=== PATIENT | female | born 1965 | race Caucasian/White ===

== ENCOUNTER 2019-01-14 08:24 | Emergency (ER) | payer MEDICAID ==
--- NOTE | 2019-01-14 08:59 | EDM.PDOC ---
ED HPI GENERAL MEDICAL PROBLEM - General Chief Complaint: Upper Extremity Injury/Pain Stated Complaint: RIGHT SHOULDER /RIGHT HIP PAIN Time Seen by Provider: 01/14/19 08:53 Source of Information: Reports: Patient History Limitations: Reports: No Limitations - History of Present Illness INITIAL COMMENTS - FREE TEXT/NARRATIVE: She is a 53-year-old female with significant past medical history of osteoarthritis of LS spine, anxiety and hypothyroidism, presented today with concerns of right hip pain and right shoulder pain after falling/tripping over a dog 2-weeks ago. Patient states she's been using conservative therapy including ice and hot packs, Tylenol, and using her prescription muscle relaxant to help with spasm in her right hip and right buttock. Patient otherwise denies any fevers, chills, body aches, changes in bowel or bladder habits; denies incontinence. States having paresthesias of her right lower extremities however this is baseline prior to injury. Has not seen a physician that she cannot get an appointment, states the pain had interfered with sleep; hence her coming to the ER this AM. Denies any head trauma, LOC, dizziness or headache. Denies any other neurological symptoms/changes since fall. Right Hip Pain Score (Numeric/FACES): 6 - Related Data Allergies Allergy/AdvReac Type Severity Reaction Status Date / Time NSAIDS (Non-Steroidal Allergy Hives Verified 01/14/19 09:00 Anti-Inflamma prednisone Allergy Rash Verified 01/14/19 09:00 Home Meds: Home Meds LORazepam 0.5 mg PO BID PRN 01/14/19 [History] Methocarbamol [Robaxin] 500 mg PO TID PRN 01/14/19 [History] Thyroid [[place] Thyroid] 30 mg PO DAILY 01/14/19 [History] Review of Systems - Review of Systems Review Of Systems: See Below Constitutional: Denies: Chills, Fever, Weakness Eyes: Reports: No Symptoms Ears: Reports: No Symptoms Nose: Reports: No Symptoms Mouth/Throat: Reports: No Symptoms Respiratory: Reports: No Symptoms Cardiovascular: Reports: No Symptoms GI/Abdominal: Reports: No Symptoms. Denies: Nausea, Vomiting Genitourinary: Denies: Incontinence Musculoskeletal: Reports: Shoulder Pain, Joint Pain, Other (right hip pain ) Neurological: Reports: Paresthesia Psychiatric: Reports: No Symptoms ED EXAM, GENERAL - Physical Exam Exam: See Below Exam Limited By: No Limitations General Appearance: Alert, No Apparent Distress Head: Atraumatic, Normocephalic Respiratory/Chest: No Respiratory Distress, Lungs Clear Cardiovascular: Regular Rate, Rhythm, No Edema GI/Abdominal: Soft, Non-Tender Back Exam: Other (Mild cervical paraspinal tenderness. No acute step-offs or deformity palpated/appreciated. ) Extremities: Other (right hp ;point tenderness over trocahnteric area; no ecchymosis noted. FROM. Right Shoulder: FROM, mild ACjoint tenderness; no soft tissue swelling, +paraspinal cervical tenderness; ...mild apprehension sign on right) Neurological: Alert, Oriented, CN II-XII Intact, Normal Cognition Psychiatric: Normal Affect, Normal Mood Skin Exam: Warm, Dry, Intact Course - Vital Signs Last Recorded V/S: Last Vital Signs Temp 96.3 F 01/14/19 09:04 Pulse 96 01/14/19 09:04 Resp 20 01/14/19 09:04 BP 120/67 01/14/19 09:04 Pulse Ox 97 01/14/19 09:04 Departure - Departure Time of Disposition: 10:34 Disposition: Home, Self-Care 01 Clinical Impression: Shoulder contusion, Contusion, hip - Discharge Information Referrals: Jocelyn Mahajan STORY EDITOR [Primary Care Provider] - Forms: ED Department Discharge - Assessment/Plan Assessment:: Assessment 1. Right shoulder contusion status post fall 2. Right hip contusion status post fall Plan. 1. No radiological evidence of fracture and/or dislocation. Advised to follow with PCP and physical therapy. Continue to use conservative treatments 2. Tramadol 50 mg q8hrs PRN pain x 5-days : Every 8 hours when necessary for pain. PDMP reviewed Advised to continue conservative treatment including ice/heat. Stretch and strengthening exercises encouraged and educated. patient understood plan. all questions answered will return PRN. No head trauma or LOC; advised to return if symptoms of headache, fever, changes unconsciousness, bladder /bowel habits change and/or Chest pain or SOB develop. patient understood. Plan: The following information is given to patients seen in the emergency department who are being discharged to home. This information is to outline your options for follow-up care. We provide all patients seen in our emergency department with a follow-up referral. The need for follow-up, as well as the timing and circumstances, are variable depending upon the specifics of your emergency department visit. If you don't have a primary care physician on staff, we will provide you with a referral. We always advise you to contact your personal physician following an emergency department visit to inform them of the circumstance of the visit and for follow-up with them and/or the need for any referrals to a consulting specialist. The emergency department will also refer you to a specialist when appropriate. This referral assures that you have the opportunity for follow-up care with a specialist. All of these measure are taken in an effort to provide you with optimal care, which includes your follow-up. Under all circumstances we always encourage you to contact your private physician who remains a resource for coordinating your care. When calling for follow-up care, please make the office aware that this follow-up is from your recent emergency room visit. If for any reason you are refused follow-up, please contact the [facility] Emergency Department at and asked to speak to the emergency department charge nurse.
--- NOTE | 2019-01-14 10:19 | CR ---
Indication: Pain Technique: Bilateral hips 4 views Comparison: None Findings: Bones: Alignment is normal. No fractures or bone lesions. Joint spaces: Unremarkable. No degenerative changes. Soft tissues: Unremarkable. Impression: Unremarkable bilateral hips. No specific finding to explain pain. Dictated by Shawn Vazquez MD @ Jan 14 2019 10:14AM Signed by Dr. Shawn Vazquez @ Jan 14 2019 10:17AM
--- NOTE | 2019-01-14 10:21 | CR ---
Indication: Shoulder pain Technique: Right shoulder 3 views Comparison: None Findings: Bones: Alignment is normal. No fractures or bone lesions. Joint spaces: Minimal arthritic changes in the AC joint. Unremarkable glenohumeral joint. Narrowing of the subacromial space is suspected. Soft tissues: Unremarkable. Impression: Suspected narrowing of the subacromial space may indicate rotator cuff disease. Minimal AC joint arthritis. No other finding to explain pain. Dictated by Shawn Vazquez MD @ Jan 14 2019 10:17AM Signed by Dr. Shawn Vazquez @ Jan 14 2019 10:20AM
== END 2019-01-14 10:38 | disposition home or self-care (01) ==
LOC: MW.ED 08:24
DX: S40.011A Contusion of right shoulder, initial encounter (principal); S70.01XA Contusion of right hip, initial encounter; Z88.6 Allergy status to analgesic agent; W01.0XXA Fall on same level from slipping, tripping and stumbling without subsequent striking against object, initial encounter
CPT/HCPCS: 73030-26-RT; 73030-RT; 73521; 73521-26; 99283-25

== ENCOUNTER 2019-01-31 10:09 | Observation (INO) | payer MEDICAID ==
[2019-01-31] MEDS ORDERED: Alum Hydrox/Mag Hydrox/Simeth 15 ML, Metoclopramide 5 MG, Lidocaine 2% 5 ML PO ONE ×3 (10:12)
[2019-01-31] MEDS ORDERED: Sodium Chloride 0.9% 1,000 ML IV ONE (10:12)
[2019-01-31] MEDS ORDERED: Aspirin 81 MG Tab.Chew PO ONE (10:17)
--- NOTE | 2019-01-31 10:17 | EDM.PDOC ---
ED HPI GENERAL MEDICAL PROBLEM - General Chief Complaint: Chest Pain Stated Complaint: CHEST PAIN Time Seen by Provider: 01/31/19 10:10 Source of Information: Reports: Patient History Limitations: Reports: No Limitations - History of Present Illness INITIAL COMMENTS - FREE TEXT/NARRATIVE: HISTORY AND PHYSICAL: History of present illness: Patient is a 53-year-old female who presents to the emergency room today with complaints of midsternal chest pain, dizziness, diaphoresis and nausea. Last night she states she developed midsternal chest pain that wrapped around her left wrist and/or shoulder which she thought initially was indigestion. She states it took her a while to fall asleep but eventually was able to rest throughout the night. She did wake up in the morning with the same chest pain and stated that it increased while she was having to climb up the stairs. She states the pain with the physical activity made her feel like she was going to pass out. Currently rating her pain at a 7/10. Patient reports she had an IA at the age of 27 although did not require any intervention. She does smoke daily and reports an increase in stressors. Past medical history of anxiety, hypothyroidism and chronic pain. Review of systems: As per history of present illness and below otherwise all systems reviewed and negative. Past medical history: As per history of present illness and as reviewed below otherwise noncontributory. Surgical history: As per history of present illness and as reviewed below otherwise noncontributory. Social history: See social history for further information Family history: As per history of present illness and as reviewed below otherwise noncontributory. Physical exam: General: Well-developed and well-nourished 53-year-old female. Alert and oriented. Nontoxic appearing and in no acute distress. HEENT: Atraumatic, normocephalic, pupils equal and reactive bilaterally, negative for conjunctival pallor or scleral icterus, mucous membranes moist, trachea midline. No drooling or trismus noted. No meningeal signs. No hot potato voice noted. Lungs: Clear to auscultation, breath sounds equal bilaterally, chest pain is reproducable with palpation. Heart: S1S2, regular rate and rhythm without overt murmur Abdomen: Soft, nondistended, nontender. Negative for masses or hepatosplenomegaly. Negative for costovertebral tenderness. Pelvis: Stable nontender. Skin: Intact, warm, dry. No lesions or rashes noted. Extremities: Atraumatic, moves all extremities per self without difficulty or deficits, negative for cords or calf pain. Neurovascular unremarkable. Neuro: Awake, alert, oriented. Cranial nerves II through XII unremarkable. Cerebellum unremarkable. Motor and sensory unremarkable throughout. Exam nonfocal. Notes: Exam unremarkable. Chest x-ray shows no acute findings. Her pain is reproducible with palpation of the chest wall. She states she does not want to take any NSAIDs although was agreeable to taking the aspirin. We'll give her some morphine for her continued pain. We did discuss admission versus discharge to home. Due to her history of a reported heart attack at the age of 27 and current smoking status will admit for observation with telemetry. Diagnostics: CBC, CMP, UA, Troponin, EKG, CXR, TSH Therapeutics: IV fluids, GI cocktail, Aspirin Impression: Chest Pain r/o IA Plan: Observation admission to Med/Surg with telemetry Definitive disposition and diagnosis as appropriate pending reevaluation and review of above. Left Chest Pain Score (Numeric/FACES): 7 - Related Data Allergies Allergy/AdvReac Type Severity Reaction Status Date / Time NSAIDS (Non-Steroidal Allergy Hives Verified 01/31/19 10:12 Anti-Inflamma prednisone Allergy Rash Verified 01/31/19 10:12 Home Meds: Home Meds LORazepam 0.5 mg PO BID PRN 01/14/19 [History] Methocarbamol [Robaxin] 500 mg PO TID PRN 01/14/19 [History] Thyroid [[place] Thyroid] 30 mg PO DAILY 01/14/19 [History] Past Medical History HEENT History: Reports: None Cardiovascular History: Reports: None Respiratory History: Reports: None Gastrointestinal History: Reports: None Genitourinary History: Reports: None VIDEO TAPE DUPLICATOR History: Reports: None Musculoskeletal History: Reports: Other (See Below) Other Musculoskeletal History: Degenerative Disk Disease Psychiatric History: Reports: Anxiety Endocrine/Metabolic History: Reports: Hyperthyroidism, Hypothyroidism Hematologic History: Reports: None Immunologic History: Reports: None Oncologic (Cancer) History: Reports: None Dermatologic History: Reports: None - Infectious Disease History Infectious Disease History: Reports: None - Past Surgical History Head Surgeries/Procedures: Reports: None Social & Family History - Family History Family Medical History: Noncontributory - Caffeine Use Caffeine Use: Reports: Coffee ED ROS GENERAL - Review of Systems Review Of Systems: ROS reveals no pertinent complaints other than HPI. ED EXAM, GENERAL - Physical Exam Exam: See Below (See dictation) Course - Vital Signs Last Recorded V/S: Last Vital Signs Temp 97.3 F 01/31/19 11:38 Pulse 83 01/31/19 11:38 Resp 18 01/31/19 11:38 BP 124/69 01/31/19 11:38 Pulse Ox 97 01/31/19 11:38 - Orders/Labs/Meds Orders: Active Orders 24 hr Category Date Time Status Admission Status [Patient Status] [ADT] Stat ADT 01/31/19 11:35 Active EKG Documentation Completion [RC] STAT Care 01/31/19 10:12 Active Sodium Chloride 0.9% [Normal Saline] 1,000 ml Med 01/31/19 10:12 Active IV STAT Medication Orders Sodium Chloride (Normal Saline) 1,000 mls @ 125 mls/hr IV STAT ONE Stop: 01/31/19 18:11 Last Admin: 01/31/19 10:23 Dose: 125 mls/hr Labs: Laboratory Tests 01/31/19 01/31/19 01/31/19 Range/Units 10:23 10:23 10:28 WBC 7.45 (4.0-11.0) K/uL RBC 4.65 (4.30-5.90) M/uL Hgb 14.1 (12.0-16.0) g/dL Hct 41.4 (36.0-46.0) % MCV 89.0 (80.0-98.0) fL MCH 30.3 (27.0-32.0) pg MCHC 34.1 (31.0-37.0) g/dL RDW Std Deviation 42.2 (28.0-62.0) fl RDW Coeff of [place] 13 (11.0-15.0) % Plt Count 307 (150-400) K/uL MPV 10.10 (7.40-12.00) fL Add Manual Diff YES Neutrophils % (Manual) 41 L (48.0-80.0) % Lymphocytes % (Manual) 54 H (16.0-40.0) % Monocytes % (Manual) 4 (0.0-15.0) % Basophils % (Manual) 1 (0.0-1.5) % Nucleated RBC % 0.0 /100WBC Absolute Seg Neuts 3.1 (1.4-5.7) Lymphocytes # (Manual) 4.0 H (0.6-2.4) Monocytes # (Manual) 0.3 (0.0-0.8) Basophils # (Manual) 0.1 (0.0-0.1) Nucleated RBCs # 0 K/uL Sodium 140 (136-145) mmol/L Potassium 3.9 (3.5-5.1) mmol/L Chloride 105 (98-107) mmol/L Carbon Dioxide 26.1 (21.0-32.0) mmol/L BUN 13 (7.0-18.0) mg/dL Creatinine 0.8 (0.6-1.0) mg/dL Est Cr Clr Drug Dosing 65.73 mL/min Estimated GFR (MDRD) > 60.0 ml/min Glucose 105 (74-106) mg/dL Calcium 8.8 (8.5-10.1) mg/dL Total Bilirubin 0.4 (0.2-1.0) mg/dL AST 17 (15-37) IU/L ALT 23 (14-63) IU/L Alkaline Phosphatase 65 (46-116) U/L Troponin I < 0.050 (0.000-0.056) ng/mL Total Protein 7.2 (6.4-8.2) g/dL Albumin 3.7 (3.4-5.0) g/dL Globulin 3.5 (2.6-4.0) g/dL Albumin/Globulin Ratio 1.1 (0.9-1.6) TSH 3rd Generation 0.61 (0.36-3.74) uIU/mL Urine Color YELLOW Urine Appearance CLEAR Urine pH 5.0 (5.0-8.0) Ur Specific [place] 1.025 (1.001-1.035) Urine Protein NEGATIVE (NEGATIVE) mg/dL Urine Glucose (UA) NEGATIVE (NEGATIVE) mg/dL Urine Ketones NEGATIVE (NEGATIVE) mg/dL Urine Occult Blood TRACE-INTACT H (NEGATIVE) Urine Nitrite NEGATIVE (NEGATIVE) Urine Bilirubin NEGATIVE (NEGATIVE) Urine Urobilinogen 0.2 (<2.0) EU/dL Ur Leukocyte Esterase NEGATIVE (NEGATIVE) Urine RBC 0-2 (0-2/HPF) Urine WBC 0-1 (0-5/HPF) Ur Epithelial Cells OCCASIONAL (NONE-FEW) Urine Bacteria RARE (NEGATIVE) Meds: Medications Generic Name Dose Route Start Last Admin Trade Name Quan PRN Reason Stop Dose Admin Sodium Chloride 1,000 mls @ 125 mls/hr 01/31/19 10:12 01/31/19 10:23 Normal Saline IV 01/31/19 18:11 125 mls/hr STAT ONE Administration Discontinued Medications Generic Name Dose Route Start Last Admin Trade Name Quan PRN Reason Stop Dose Admin Aspirin 324 mg 01/31/19 10:17 01/31/19 10:23 Aspirin PO 01/31/19 10:18 324 mg ONETIME ONE Administration Al Hydroxide/Mg Hydroxide 15 0 ml 01/31/19 10:12 01/31/19 10:23 ml/ Metoclopramide HCl 5 mg/ PO 01/31/19 10:13 25 each Lidocaine HCl 5 ml ONETIME ONE Administration Morphine Sulfate 2 mg 01/31/19 11:19 01/31/19 11:37 Morphine IVPUSH 01/31/19 11:20 2 mg ONETIME ONE Administration Ondansetron HCl 4 mg 01/31/19 11:19 01/31/19 11:37 Zofran IVPUSH 01/31/19 11:20 4 mg ONETIME ONE Administration Departure - Departure Time of Disposition: 12:43 Disposition: Refer to Observation Clinical Impression: Chest pain, rule out acute myocardial infarction Referrals: Jocelyn Mahajan DIRECTOR OF [employer]UMNI RELATIONS [Primary Care Provider] - Forms: ED Department Discharge - My Orders Last 24 Hours: My Active Orders 01/31/19 10:12 EKG Documentation Completion [RC] STAT Sodium Chloride 0.9% [Normal Saline] 1,000 ml IV STAT 01/31/19 11:35 Admission Status [Patient Status] [ADT] Stat - Assessment/Plan Last 24 Hours: My Active Orders 01/31/19 10:12 EKG Documentation Completion [RC] STAT Sodium Chloride 0.9% [Normal Saline] 1,000 ml IV STAT 01/31/19 11:35 Admission Status [Patient Status] [ADT] Stat
[2019-01-31 11:13] LABS: BLOOD UREA NITROGEN,BUN 13 mg/dL (7.0-18.0); CARBON DIOXIDE,CO2 26.1 mmol/L (21.0-32.0); CHLORIDE,CL 105 mmol/L (98-107); GLUCOSE RANDOM 105 mg/dL (74-106); POTASSIUM,K 3.9 mmol/L (3.5-5.1); SODIUM,NA 140 mmol/L (136-145)
[2019-01-31] MEDS ORDERED: Ondansetron 4 MG/2 ML SDV IVPUSH ONE (11:19)
[2019-01-31] MEDS ORDERED: Morphine 2 MG/ML Syringe IVPUSH ONE (11:19)
--- NOTE | 2019-01-31 11:30 | CR ---
EXAM DATE: 01/31/19 PATIENT'S AGE: 53 Chest: Portable view of the chest was obtained. Comparison: No prior chest x-ray. Heart size and mediastinum are normal. Increased density is seen overlying the right first rib most likely due to bone island. No acute parenchymal change is felt to be present within the lungs. Bony structures are otherwise grossly intact. Impression: 1. Presumed bone island within the right first rib. 2. Nothing acute is otherwise seen on portable chest x-ray. Diagnostic code #2 Report Signed by Proxy. BRUNA
[2019-01-31] MEDS ORDERED: Non-Formulary Medication 1 Each (Lorazepam 0.5 MG) PO PRN (13:02)
--- NOTE | 2019-01-31 13:24 | PCM.HP.2 ---
Addendum entered and electronically signed by Nell Pate NP 01/31/19 14:29 : Correction: EKG SR with RBBB. No possible a fib. No ST elevations or T wave inversions. Original Note: H&P History of Present Illness - General Date of Service: 01/31/19 Admit Problem/Dx: Admission Diagnosis/Problem Admission Diagnosis/Problem Chest pain, rule out acute myocardial infarction Source of Information: Patient - History of Present Illness Initial Comments - Free Text/Narative: This 53 year old female with pmh of [place] at age 27, hyperthyroidism with radiation and now subsequently hypothyroid, anxiety and chronic back pain presented to the ED with complaints of midsternal chest pain with associated lightheadedness, SOB, and dizziness. She reports the pain started last evening, she felt maybe it was related to her anxiety and took her Ativan, but the pain persisted through the night. Today she reports she was still having the pain and then also had the pain worsen and radiate to her L arm with activity which scared her. She reports the pain is pressure like and heaviness. She reports the associated shortness of breath, lightheadedness and dizziness. She reports she checked her pulse and noticed it was skipping beats and fast at times. She reports she was on some heart medication when she was first diagnosed with hyperthyroidism, but has not been on this for a long time. She reports some heartburn and mild nausea as well. No abdominal pain or urinary concerns. She reports she is dealing with a lot of stressors, as she is moving from [place] to [place] and needing to find apartments. She reports significiant family history of CAD with mother and father along with grandparents. She reports she smokes 10 ciagrettes daily, which is less than 10 years ago, but continues to smoke and is wanting to quit. She denies recreational drug use and alcohol use. In the ED CBC WNL. UA negative BMP WNL. K+ 3.9. CXR negative. TSH 0.61. She was given ASA, Morphine GI cocktail and NS fluids in the ED. She report she is feeling anxious right now with admission, but denies pain currently. Unsure what really made it better. EKG revealed possible afib with rates in the 90s, repeat revealed SR 70s with no ST changes or T wave inversions. PCP, [place]. Left Chest Pain Score (Numeric/FACES): 7 - Related Data Allergies/Adverse Reactions: Allergies Allergy/AdvReac Type Severity Reaction Status Date / Time NSAIDS (Non-Steroidal Allergy Hives Verified 01/31/19 13:45 Anti-Inflamma prednisone Allergy Rash Verified 01/31/19 13:45 Home Medications: Home Meds LORazepam 0.5 mg PO BID PRN 01/14/19 [History] Methocarbamol [Robaxin] 500 mg PO TID PRN 01/14/19 [History] Cholecalciferol (Vitamin D3) [Vitamin D3] 5,000 unit PO DAILY 01/31/19 [History] Thyroid [[place] Thyroid] 15 mg PO DAILY 01/31/19 [History] Past Medical History HEENT History: Reports: None Cardiovascular History: Reports: Arrhythmia, High Cholesterol, [place] (age 27) Respiratory History: Reports: None Gastrointestinal History: Reports: None. Denies: GERD Genitourinary History: Reports: Renal Calculus. Denies: Chronic Renal Insuffiency ROLLER PICKER History: Reports: None Musculoskeletal History: Reports: Back Pain, Chronic, Other (See Below) Other Musculoskeletal History: Degenerative Disk Disease Psychiatric History: Reports: Anxiety, PTSD Endocrine/Metabolic History: Reports: Hyperthyroidism (radiation beads at one time to thyroid), Hypothyroidism. Denies: Diabetes, Type II Hematologic History: Reports: None Immunologic History: Reports: None Oncologic (Cancer) History: Reports: None Dermatologic History: Reports: None - Infectious Disease History Infectious Disease History: Reports: None - Past Surgical History Head Surgeries/Procedures: Reports: None Cardiovascular Surgical History: Reports: None Female Surgical History: Reports: Hysterectomy Neurological Surgical History: Reports: Lumbar Spine Social & Family History - Family History Family Medical History: Noncontributory - Tobacco Use Smoking Status *Q: Current Every Day Smoker Years of Tobacco use: 30 Packs/Tins Daily: 1 - Caffeine Use Caffeine Use: Reports: Coffee - Alcohol Use Alcohol Use History: No - Recreational Drug Use Recreational Drug Use: No - Living Situation & Occupation Living situation: Reports: Alone Occupation: Disabled H&P Review of Systems - Review of Systems: Review Of Systems: See Below General: Reports: No Symptoms. Denies: Fever, Chills, Malaise HEENT: Reports: No Symptoms. Denies: Headaches, Sinus Congestion Pulmonary: Reports: Shortness of Breath. Denies: Cough, Sputum Cardiovascular: Reports: Chest Pain, Lightheadedness Gastrointestinal: Reports: Nausea, Other (heartburn). Denies: Abdominal Pain, Black Stool, Bloody Stool, Vomiting Genitourinary: Reports: No Symptoms. Denies: Dysuria, Frequency Musculoskeletal: Reports: No Symptoms Skin: Reports: No Symptoms Psychiatric: Reports: Anxiety Neurological: Reports: No Symptoms Hematologic/Lymphatic: Reports: No Symptoms Immunologic: Reports: No Symptoms Exam - Exam Exam: See Below - Vital Signs Vital Signs: Last Vital Signs Temp 97.3 F 01/31/19 11:38 Pulse 83 01/31/19 11:38 Resp 18 01/31/19 11:38 BP 124/69 01/31/19 11:38 Pulse Ox 97 01/31/19 11:38 Weight: 74.843 kg - Exam General: Alert, Oriented, Cooperative HEENT: Conjunctiva Clear, Nares Patent, Pupils Equal Lungs: Clear to Auscultation, Normal Respiratory Effort Cardiovascular: Regular Rate, Regular Rhythm, Normal S1, Normal S2. No: Systolic Murmur GI/Abdominal Exam: Normal Bowel Sounds, Soft, Non-Tender Extremities: Normal Inspection, Normal Range of Motion, Non-Tender, No Pedal Edema Neuro Extensive - Mental Status: Alert, Oriented x3 Neuro Extensive - Motor, Sensory, Reflexes: CN II-XII Intact Psychiatric: Alert, Normal Affect, Normal Mood - Patient Data Lab Results Last 24 hrs: Laboratory Results - last 24 hr 01/31/19 01/31/19 01/31/19 Range/Units 10:23 10:23 10:28 WBC 7.45 (4.0-11.0) K/uL RBC 4.65 (4.30-5.90) M/uL Hgb 14.1 (12.0-16.0) g/dL Hct 41.4 (36.0-46.0) % MCV 89.0 (80.0-98.0) fL MCH 30.3 (27.0-32.0) pg MCHC 34.1 (31.0-37.0) g/dL RDW Std Deviation 42.2 (28.0-62.0) fl RDW Coeff of [place] 13 (11.0-15.0) % Plt Count 307 (150-400) K/uL MPV 10.10 (7.40-12.00) fL Add Manual Diff YES Neutrophils % (Manual) 41 L (48.0-80.0) % Lymphocytes % (Manual) 54 H (16.0-40.0) % Monocytes % (Manual) 4 (0.0-15.0) % Basophils % (Manual) 1 (0.0-1.5) % Nucleated RBC % 0.0 /100WBC Absolute Seg Neuts 3.1 (1.4-5.7) Lymphocytes # (Manual) 4.0 H (0.6-2.4) Monocytes # (Manual) 0.3 (0.0-0.8) Basophils # (Manual) 0.1 (0.0-0.1) Nucleated RBCs # 0 K/uL Sodium 140 (136-145) mmol/L Potassium 3.9 (3.5-5.1) mmol/L Chloride 105 (98-107) mmol/L Carbon Dioxide 26.1 (21.0-32.0) mmol/L BUN 13 (7.0-18.0) mg/dL Creatinine 0.8 (0.6-1.0) mg/dL Est Cr Clr Drug Dosing 65.73 mL/min Estimated GFR (MDRD) > 60.0 ml/min Glucose 105 (74-106) mg/dL Calcium 8.8 (8.5-10.1) mg/dL Total Bilirubin 0.4 (0.2-1.0) mg/dL AST 17 (15-37) IU/L ALT 23 (14-63) IU/L Alkaline Phosphatase 65 (46-116) U/L Troponin I < 0.050 (0.000-0.056) ng/mL Total Protein 7.2 (6.4-8.2) g/dL Albumin 3.7 (3.4-5.0) g/dL Globulin 3.5 (2.6-4.0) g/dL Albumin/Globulin Ratio 1.1 (0.9-1.6) TSH 3rd Generation 0.61 (0.36-3.74) uIU/mL Urine Color YELLOW Urine Appearance CLEAR Urine pH 5.0 (5.0-8.0) Ur Specific [place] 1.025 (1.001-1.035) Urine Protein NEGATIVE (NEGATIVE) mg/dL Urine Glucose (UA) NEGATIVE (NEGATIVE) mg/dL Urine Ketones NEGATIVE (NEGATIVE) mg/dL Urine Occult Blood TRACE-INTACT H (NEGATIVE) Urine Nitrite NEGATIVE (NEGATIVE) Urine Bilirubin NEGATIVE (NEGATIVE) Urine Urobilinogen 0.2 (<2.0) EU/dL Ur Leukocyte Esterase NEGATIVE (NEGATIVE) Urine RBC 0-2 (0-2/HPF) Urine WBC 0-1 (0-5/HPF) Ur Epithelial Cells OCCASIONAL (NONE-FEW) Urine Bacteria RARE (NEGATIVE) Result Diagrams: 01/31/19 10:23 01/31/19 10:23 EKG INTERPRETATION EKG Date: 01/31/19 Rhythm: NSR P-Wave: Present QRS: Normal ST-T: Normal QT: Normal - Problem List (1) Chest pain, rule out acute myocardial infarction SNOMED Code(s): 30494053 ICD Code: R07.9 - CHEST PAIN, UNSPECIFIED Status: Acute Current Visit: Yes (2) Hypothyroidism SNOMED Code(s): 94599749 ICD Code: E03.9 - HYPOTHYROIDISM, UNSPECIFIED Status: Chronic Current Visit: Yes Qualifiers: Hypothyroidism type: postablative Qualified Code(s): E89.0 - Postprocedural hypothyroidism (3) Hyperthyroidism SNOMED Code(s): 62414255 ICD Code: E05.90 - THYROTOXICOSIS, UNSP WITHOUT THYROTOXIC CRISIS OR STORM Status: Chronic Current Visit: Yes (4) Anxiety SNOMED Code(s): 66734048 ICD Code: F41.9 - ANXIETY DISORDER, UNSPECIFIED Status: Chronic Current Visit: Yes (5) PTSD (post-traumatic stress disorder) SNOMED Code(s): 82818433 ICD Code: F43.10 - POST-TRAUMATIC STRESS DISORDER, UNSPECIFIED Status: Chronic Current Visit: Yes (6) Tobacco use SNOMED Code(s): 093113780 ICD Code: Z72.0 - TOBACCO USE Status: Chronic Current Visit: Yes Problem List Initiated/Reviewed/Updated: Yes Orders Last 24hrs: Active Orders 24 hr Category Date Time Status Admission Status [Patient Status] [ADT] Stat ADT 01/31/19 11:35 Active EKG Documentation Completion [RC] STAT Care 01/31/19 10:12 Active LORazepam Med 01/31/19 13:02 Ordered 0.5 mg PO BID PRN Sodium Chloride 0.9% [Normal Saline] 1,000 ml Med 01/31/19 10:12 Active IV STAT Medication Orders Sodium Chloride (Normal Saline) 1,000 mls @ 125 mls/hr IV STAT ONE Stop: 01/31/19 18:11 Last Admin: 01/31/19 10:23 Dose: 125 mls/hr Non-Formulary Medication (Lorazepam) 0.5 mg PO BID PRN PRN Reason: Anxiety Assessment/Plan Comment:: This 53 year old female admitted with chest pain rule out ACS 1. Chest pain: Monitor on telemetry, trend troponins. Obtain lipid panel and A1c. Monitor for HTN. Also monitor for afib, questionable history of this with hyperthyroidism. TSH 0.61 now. Given protonix for possible GERD. May need outpatient Zio patch to evaluate for arrhythmias. 2. Hypothyroidism: Stable, continue home medications 3. Anxiety: Continue Lorazepam as home dosing. VTE prophylaxis: Lovenox Dispo: 1 day - Mortality Measure Prognosis:: Good
[2019-01-31] MEDS ORDERED: Acetaminophen 325 MG Tab PO PRN (13:41)
[2019-01-31] MEDS ORDERED: Morphine 2 MG/ML Syringe IVPUSH PRN (13:41)
[2019-01-31] MEDS ORDERED: Ondansetron 4 MG/2 ML SDV IVPUSH PRN (13:41)
[2019-01-31] MEDS ORDERED: Enoxaparin 40 MG/0.4 ML Syringe SUBCUT SCH (13:45)
[2019-01-31 14:32] LABS: HEMOGLOBIN A1C 5.8 % (4.5-6.2)
[2019-01-31] MEDS: LORazepam 0.5 MG Tab PO PRN (14:43)
[2019-02-01] MEDS: LORazepam 0.5 MG Tab PO PRN (04:23)
--- NOTE | 2019-02-01 08:55 | PCM.DCSUM1 ---
Discharge Summary - Hospital Course Brief History: This 53 year old female with pmh of [place] at age 27, hyperthyroidism with radiation and now subsequently hypothyroid, anxiety and chronic back pain presented to the ED with complaints of midsternal chest pain with associated lightheadedness, SOB, and dizziness. She reports the pain started last evening, she felt maybe it was related to her anxiety and took her Ativan, but the pain persisted through the night. Today she reports she was still having the pain and then also had the pain worsen and radiate to her L arm with activity which scared her. She reports the pain is pressure like and heaviness. She reports the associated shortness of breath, lightheadedness and dizziness. She reports she checked her pulse and noticed it was skipping beats and fast at times. She reports she was on some heart medication when she was first diagnosed with hyperthyroidism, but has not been on this for a long time. She reports some heartburn and mild nausea as well. No abdominal pain or urinary concerns. She reports she is dealing with a lot of stressors, as she is moving from [place] to [place] and needing to find apartments. She reports significiant family history of CAD with mother and father along with grandparents. She reports she smokes 10 ciagrettes daily, which is less than 10 years ago, but continues to smoke and is wanting to quit. She denies recreational drug use and alcohol use. In the ED CBC WNL. UA negative BMP WNL. K+ 3.9. CXR negative. TSH 0.61. She was given ASA, Morphine GI cocktail and NS fluids in the ED. She report she is feeling anxious right now with admission, but denies pain currently. Unsure what really made it better. EKG revealed SR 70s with RBBB with no ST changes or T wave inversions. PCP, [place]. Diagnosis: Stroke: No Modified [place] Scale: No Symptoms at All Modified [place] Scale Score: 0 - Discharge Data Discharge Date: 02/01/19 Discharge Disposition: Home, Self-Care 01 Condition: Good - Referral to Home Health Primary Care Physician: Jocelyn Mahajan NP - Discharge Diagnosis/Problem(s) (1) Chest pain, rule out acute myocardial infarction SNOMED Code(s): 94429499 ICD Code: R07.9 - CHEST PAIN, UNSPECIFIED Status: Acute Current Visit: Yes (2) Hypothyroidism SNOMED Code(s): 47573129 ICD Code: E03.9 - HYPOTHYROIDISM, UNSPECIFIED Status: Chronic Current Visit: Yes Qualifiers: Hypothyroidism type: postablative Qualified Code(s): E89.0 - Postprocedural hypothyroidism (3) Hyperthyroidism SNOMED Code(s): 98361360 ICD Code: E05.90 - THYROTOXICOSIS, UNSP WITHOUT THYROTOXIC CRISIS OR STORM Status: Chronic Current Visit: Yes (4) Anxiety SNOMED Code(s): 88997405 ICD Code: F41.9 - ANXIETY DISORDER, UNSPECIFIED Status: Chronic Current Visit: Yes (5) PTSD (post-traumatic stress disorder) SNOMED Code(s): 20574647 ICD Code: F43.10 - POST-TRAUMATIC STRESS DISORDER, UNSPECIFIED Status: Chronic Current Visit: Yes (6) Tobacco use SNOMED Code(s): 618091695 ICD Code: Z72.0 - TOBACCO USE Status: Chronic Current Visit: Yes - Patient Instructions Diet: Heart Healthy Diet Activity: No Strenuous Activities Showering/Bathing: May Shower Notify Provider of: Fever, Increased Pain, Swelling and Redness, Drainage, Nausea and/or Vomiting - Discharge Plan *PRESCRIPTION DRUG MONITORING PROGRAM REVIEWED*: Not Applicable *COPY OF PRESCRIPTION DRUG MONITORING REPORT IN PATIENT SOLE: Not Applicable Prescriptions/Med Rec: Aspirin 81 mg PO BEDTIME #30 tab.chew atorvaSTATin [Lipitor] 20 mg PO BEDTIME #30 tab Home Medications: Home Meds LORazepam 0.5 mg PO BID PRN 01/14/19 [History] Methocarbamol [Robaxin] 500 mg PO TID PRN 01/14/19 [History] Cholecalciferol (Vitamin D3) [Vitamin D3] 5,000 unit PO DAILY 01/31/19 [History] Thyroid [[place] Thyroid] 15 mg PO DAILY 01/31/19 [History] Aspirin 81 mg PO BEDTIME #30 tab.chew 02/01/19 [Rx] atorvaSTATin [Lipitor] 20 mg PO BEDTIME #30 tab 02/01/19 [Rx] Oxygen Therapy Mode: Room Air Patient Handouts: Hyperthyroidism, Hypothyroidism, Nonspecific Chest Pain, Easy -to-Read, Atorvastatin tablets, Aspirin, ASA oral tablets Referrals: Blake Navarro MD [Resident] - 02/08/19 2:00 pm - Discharge Summary/Plan Comment DC Time >30 min.: No Discharge Summary/Plan Comment: Admitting Diagnoses: Chest Pain Discharge Diagnoses: Chest pain Dyslipidemia Other PMH: Anxiety Hx [place] PTSD Hyperthyroid Hypothyroid Tova was admitted and monitored overnight for chest pain. She has been chest pain free. Troponins were negative. Dyslipidemia was noted, LDL elevated. With history of possible [place] at age 27, she was started on Atorvastatin and ASA daily. She was counseled on this as well as heart healthy diet and smoking cessation. Chest pain could have anxiety tie, but due to co-morbidities and risk factors I will arrange for an outpatient stress test. She will follow with PCP. She is to return to ED or clinic if concerns should arise. - Patient Data Vitals - Most Recent: Last Vital Signs Temp 97.0 F 02/01/19 08:00 Pulse 80 02/01/19 08:00 Resp 16 02/01/19 08:00 BP 111/54 L 02/01/19 08:00 Pulse Ox 97 02/01/19 08:00 Weight - Most Recent: 74.843 kg I&O - Last 24 hours: Intake & Output 01/31/19 02/01/19 02/01/19 22:59 06:59 14:59 Intake Total 640 650 Output Total 200 1500 Balance 440 -850 Lab Results - Last 24 hrs: Laboratory Results - last 24 hr 01/31/19 01/31/19 01/31/19 Range/Units 10:12 10:12 10:23 WBC 7.45 (4.0-11.0) K/uL RBC 4.65 (4.30-5.90) M/uL Hgb 14.1 (12.0-16.0) g/dL Hct 41.4 (36.0-46.0) % MCV 89.0 (80.0-98.0) fL MCH 30.3 (27.0-32.0) pg MCHC 34.1 (31.0-37.0) g/dL RDW Std Deviation 42.2 (28.0-62.0) fl RDW Coeff of [place] 13 (11.0-15.0) % Plt Count 307 (150-400) K/uL MPV 10.10 (7.40-12.00) fL Add Manual Diff YES Neutrophils % (Manual) 41 L (48.0-80.0) % Lymphocytes % (Manual) 54 H (16.0-40.0) % Monocytes % (Manual) 4 (0.0-15.0) % Basophils % (Manual) 1 (0.0-1.5) % Nucleated RBC % 0.0 /100WBC Absolute Seg Neuts 3.1 (1.4-5.7) Lymphocytes # (Manual) 4.0 H (0.6-2.4) Monocytes # (Manual) 0.3 (0.0-0.8) Basophils # (Manual) 0.1 (0.0-0.1) Nucleated RBCs # 0 K/uL Sodium (136-145) mmol/L Potassium (3.5-5.1) mmol/L Chloride (98-107) mmol/L Carbon Dioxide (21.0-32.0) mmol/L BUN (7.0-18.0) mg/dL Creatinine (0.6-1.0) mg/dL Est Cr Clr Drug Dosing mL/min Estimated GFR (MDRD) ml/min Glucose (74-106) mg/dL Hemoglobin A1c 5.8 (4.5-6.2) % Calcium (8.5-10.1) mg/dL Magnesium 1.9 (1.8-2.4) mg/dL Total Bilirubin (0.2-1.0) mg/dL AST (15-37) IU/L ALT (14-63) IU/L Alkaline Phosphatase (46-116) U/L Troponin I (0.000-0.056) ng/mL Total Protein (6.4-8.2) g/dL Albumin (3.4-5.0) g/dL Globulin (2.6-4.0) g/dL Albumin/Globulin Ratio (0.9-1.6) Triglycerides (0-200) mg/dL Cholesterol (50-200) mg/dL LDL Cholesterol, Calc (60-180) mg/dL VLDL Cholesterol (5-55) mg/dL HDL Cholesterol (40-60) mg/dL Cholesterol/HDL Ratio (3.3-6.0) TSH 3rd Generation (0.36-3.74) uIU/mL Urine Color Urine Appearance Urine pH (5.0-8.0) Ur Specific [place] (1.001-1.035) Urine Protein (NEGATIVE) mg/dL Urine Glucose (UA) (NEGATIVE) mg/dL Urine Ketones (NEGATIVE) mg/dL Urine Occult Blood (NEGATIVE) Urine Nitrite (NEGATIVE) Urine Bilirubin (NEGATIVE) Urine Urobilinogen (<2.0) EU/dL Ur Leukocyte Esterase (NEGATIVE) Urine RBC (0-2/HPF) Urine WBC (0-5/HPF) Ur Epithelial Cells (NONE-FEW) Urine Bacteria (NEGATIVE) 01/31/19 01/31/19 01/31/19 Range/Units 10:23 10:28 16:02 WBC (4.0-11.0) K/uL RBC (4.30-5.90) M/uL Hgb (12.0-16.0) g/dL Hct (36.0-46.0) % MCV (80.0-98.0) fL MCH (27.0-32.0) pg MCHC (31.0-37.0) g/dL RDW Std Deviation (28.0-62.0) fl RDW Coeff of [place] (11.0-15.0) % Plt Count (150-400) K/uL MPV (7.40-12.00) fL Add Manual Diff Neutrophils % (Manual) (48.0-80.0) % Lymphocytes % (Manual) (16.0-40.0) % Monocytes % (Manual) (0.0-15.0) % Basophils % (Manual) (0.0-1.5) % Nucleated RBC % /100WBC Absolute Seg Neuts (1.4-5.7) Lymphocytes # (Manual) (0.6-2.4) Monocytes # (Manual) (0.0-0.8) Basophils # (Manual) (0.0-0.1) Nucleated RBCs # K/uL Sodium 140 (136-145) mmol/L Potassium 3.9 (3.5-5.1) mmol/L Chloride 105 (98-107) mmol/L Carbon Dioxide 26.1 (21.0-32.0) mmol/L BUN 13 (7.0-18.0) mg/dL Creatinine 0.8 (0.6-1.0) mg/dL Est Cr Clr Drug Dosing 65.73 mL/min Estimated GFR (MDRD) > 60.0 ml/min Glucose 105 (74-106) mg/dL Hemoglobin A1c (4.5-6.2) % Calcium 8.8 (8.5-10.1) mg/dL Magnesium (1.8-2.4) mg/dL Total Bilirubin 0.4 (0.2-1.0) mg/dL AST 17 (15-37) IU/L ALT 23 (14-63) IU/L Alkaline Phosphatase 65 (46-116) U/L Troponin I < 0.050 < 0.050 (0.000-0.056) ng/mL Total Protein 7.2 (6.4-8.2) g/dL Albumin 3.7 (3.4-5.0) g/dL Globulin 3.5 (2.6-4.0) g/dL Albumin/Globulin Ratio 1.1 (0.9-1.6) Triglycerides (0-200) mg/dL Cholesterol (50-200) mg/dL LDL Cholesterol, Calc (60-180) mg/dL VLDL Cholesterol (5-55) mg/dL HDL Cholesterol (40-60) mg/dL Cholesterol/HDL Ratio (3.3-6.0) TSH 3rd Generation 0.61 (0.36-3.74) uIU/mL Urine Color YELLOW Urine Appearance CLEAR Urine pH 5.0 (5.0-8.0) Ur Specific [place] 1.025 (1.001-1.035) Urine Protein NEGATIVE (NEGATIVE) mg/dL Urine Glucose (UA) NEGATIVE (NEGATIVE) mg/dL Urine Ketones NEGATIVE (NEGATIVE) mg/dL Urine Occult Blood TRACE-INTACT H (NEGATIVE) Urine Nitrite NEGATIVE (NEGATIVE) Urine Bilirubin NEGATIVE (NEGATIVE) Urine Urobilinogen 0.2 (<2.0) EU/dL Ur Leukocyte Esterase NEGATIVE (NEGATIVE) Urine RBC 0-2 (0-2/HPF) Urine WBC 0-1 (0-5/HPF) Ur Epithelial Cells OCCASIONAL (NONE-FEW) Urine Bacteria RARE (NEGATIVE) 01/31/19 02/01/19 Range/Units 22:04 06:05 WBC (4.0-11.0) K/uL RBC (4.30-5.90) M/uL Hgb (12.0-16.0) g/dL Hct (36.0-46.0) % MCV (80.0-98.0) fL MCH (27.0-32.0) pg MCHC (31.0-37.0) g/dL RDW Std Deviation (28.0-62.0) fl RDW Coeff of [place] (11.0-15.0) % Plt Count (150-400) K/uL MPV (7.40-12.00) fL Add Manual Diff Neutrophils % (Manual) (48.0-80.0) % Lymphocytes % (Manual) (16.0-40.0) % Monocytes % (Manual) (0.0-15.0) % Basophils % (Manual) (0.0-1.5) % Nucleated RBC % /100WBC Absolute Seg Neuts (1.4-5.7) Lymphocytes # (Manual) (0.6-2.4) Monocytes # (Manual) (0.0-0.8) Basophils # (Manual) (0.0-0.1) Nucleated RBCs # K/uL Sodium (136-145) mmol/L Potassium (3.5-5.1) mmol/L Chloride (98-107) mmol/L Carbon Dioxide (21.0-32.0) mmol/L BUN (7.0-18.0) mg/dL Creatinine (0.6-1.0) mg/dL Est Cr Clr Drug Dosing mL/min Estimated GFR (MDRD) ml/min Glucose (74-106) mg/dL Hemoglobin A1c (4.5-6.2) % Calcium (8.5-10.1) mg/dL Magnesium (1.8-2.4) mg/dL Total Bilirubin (0.2-1.0) mg/dL AST (15-37) IU/L ALT (14-63) IU/L Alkaline Phosphatase (46-116) U/L Troponin I < 0.050 (0.000-0.056) ng/mL Total Protein (6.4-8.2) g/dL Albumin (3.4-5.0) g/dL Globulin (2.6-4.0) g/dL Albumin/Globulin Ratio (0.9-1.6) Triglycerides 185 (0-200) mg/dL Cholesterol 268 H (50-200) mg/dL LDL Cholesterol, Calc 184 H (60-180) mg/dL VLDL Cholesterol 37 (5-55) mg/dL HDL Cholesterol 47 (40-60) mg/dL Cholesterol/HDL Ratio 5.7 (3.3-6.0) TSH 3rd Generation (0.36-3.74) uIU/mL Urine Color Urine Appearance Urine pH (5.0-8.0) Ur Specific [place] (1.001-1.035) Urine Protein (NEGATIVE) mg/dL Urine Glucose (UA) (NEGATIVE) mg/dL Urine Ketones (NEGATIVE) mg/dL Urine Occult Blood (NEGATIVE) Urine Nitrite (NEGATIVE) Urine Bilirubin (NEGATIVE) Urine Urobilinogen (<2.0) EU/dL Ur Leukocyte Esterase (NEGATIVE) Urine RBC (0-2/HPF) Urine WBC (0-5/HPF) Ur Epithelial Cells (NONE-FEW) Urine Bacteria (NEGATIVE) Med Orders - Current: Current Medications Acetaminophen (Tylenol) 650 mg PO Q4H PRN PRN Reason: Pain (mild 1-3) Last Admin: 01/31/19 14:41 Dose: 650 mg Enoxaparin Sodium (Lovenox) 40 mg SUBCUT Q24H RANDI Last Admin: 01/31/19 14:41 Dose: 40 mg Influenza Virus Vaccine (Fluzone Quad [id number] Syringe) 60 mcg IM .ONCE ONE Stop: 02/01/19 14:01 Lorazepam (Ativan) 0.5 mg PO BID PRN PRN Reason: Anxiety Last Admin: 02/01/19 04:23 Dose: 0.5 mg Morphine Sulfate (Morphine) 2 mg IVPUSH Q2H PRN PRN Reason: Pain (severe 7-10) Stop: 02/01/19 13:44 Non-Formulary Medication (Cholecalciferol (Vitamin D3)) 5,000 unit PO DAILY [facility] Non-Formulary Medication (Methocarbamol) 500 mg PO TID PRN PRN Reason: Muscle Spasm Non-Formulary Medication (Thyroid [[place] Thyroid]) 15 mg PO DAILY [facility] Ondansetron HCl (Zofran) 4 mg IVPUSH Q4H PRN PRN Reason: Nausea Last Admin: 01/31/19 15:57 Dose: 4 mg Discontinued Medications Aspirin (Aspirin) 324 mg PO ONETIME ONE Stop: 01/31/19 10:18 Last Admin: 01/31/19 10:23 Dose: 324 mg Al Hydroxide/Mg Hydroxide 15 ml/ Metoclopramide HCl 5 mg/Lidocaine HCl 5 ml 0 ml PO ONETIME ONE Stop: 01/31/19 10:13 Last Admin: 01/31/19 10:23 Dose: 25 each Sodium Chloride (Normal Saline) 1,000 mls @ 125 mls/hr IV STAT ONE Stop: 01/31/19 18:11 Last Admin: 01/31/19 10:23 Dose: 125 mls/hr Influenza Virus Vaccine (Pharmacy To Dose - Influenza Vaccine) 1 each IM ONETIME ONE Stop: 02/01/19 10:01 Morphine Sulfate (Morphine) 2 mg IVPUSH ONETIME ONE Stop: 01/31/19 11:20 Last Admin: 01/31/19 11:37 Dose: 2 mg Non-Formulary Medication (Lorazepam) 0.5 mg PO BID PRN PRN Reason: Anxiety Ondansetron HCl (Zofran) 4 mg IVPUSH ONETIME ONE Stop: 01/31/19 11:20 Last Admin: 01/31/19 11:37 Dose: 4 mg
[2019-02-01] MEDS ORDERED: Cholecalciferol (Vitamin D3) 25 MCG Tab PO SCH (09:00)
[2019-02-01] MEDS ORDERED: THYROID 15 MG PO SCH ×2 (09:00→09:45)
[2019-02-01] MEDS ORDERED: FLU Vacc QS2019-20(6MOS+)/PF 60 MCG/0.5 ML SYRINGE IM ONE (11:00)
== END 2019-02-01 12:30 | disposition home or self-care (01) ==
LOC: MW.ED 10:09 → MW.MS 11:30 → MW.ED 13:38
PROVIDERS: ADMIT Internal Medicine; ATTEND Internal Medicine
DX: R07.2 Precordial pain (principal); E03.9 Hypothyroidism, unspecified; E05.90 Thyrotoxicosis, unspecified without thyrotoxic crisis or storm; E78.5 Hyperlipidemia, unspecified; I25.2 Old myocardial infarction; E78.00 Pure hypercholesterolemia, unspecified; F41.9 Anxiety disorder, unspecified; F43.10 Post-traumatic stress disorder, unspecified; F17.210 Nicotine dependence, cigarettes, uncomplicated; Z79.899 Other long term (current) drug therapy; Z88.6 Allergy status to analgesic agent; Z88.8 Allergy status to other drugs, medicaments and biological substances
CPT/HCPCS: 36415; 71045; 80053; 80061; 81001; 83036; 83735; 84443; 84484; 85025; 90471; 90686; 93005; 96361; 96374; 96375; 99285; A9270; J1650; J2270; J2405; J7040; 96372; 96376; G0008; G0378